=== PATIENT | female | born 1980 | race Hispanic/Latino ===

== ENCOUNTER → 2018-01-27 | Outpatient (CLI) | payer SELFPAY | END | disposition home or self-care (01) | LOC: OIH 13:04 | PROVIDERS: ATTEND Internal Medicine Cardiovascular Disease | DX: Z13.6 Encounter for screening for cardiovascular disorders (principal) | CPT/HCPCS: 75571 ==

== ENCOUNTER → 2018-11-11 | Outpatient (CLI) | payer BC ==
[~2018-11-11] MED LIST: OMEP40CA37 PO
== END | disposition home or self-care (01) ==
LOC: RAH 08:13
PROVIDERS: ATTEND Family Medicine
DX: K76.0 Fatty (change of) liver, not elsewhere classified (principal)
CPT/HCPCS: 76700

== ENCOUNTER 2018-12-21 04:06 | Emergency (ER) | payer BC ==
[2018-12-21 04:43] LABS: BASOPHILS % (AUTO) 0.6 % (0.0-5.0); EOSINOPHILS % (AUTO) 0.6 % (0.0-8.0); HEMATOCRIT 34.9 % (36-48); LYMPHOCYTES % (AUTO) 21.2 % (21.0-51.0); MEAN CORPUSCULAR HEMOGLOBIN 30.1 pg (27.0-33.0); MEAN CORPUSCULAR HGB CONC 34.4 g/dL (32.0-36.0); MEAN CORPUSCULAR VOLUME 87.4 fL (79-99); MONOCYTES % (AUTO) 6.7 % (3.0-13.0); NEUTROPHILS % (AUTO) 70.9 % (40.0-77.0); PLATELET COUNT (AUTO) 246 K/uL (130-400); RED BLOOD CELL COUNT(AUTO) 3.99 MIL/uL (4.00-5.50); RED CELL DISTRIBUTION WIDTH 14.9 % (11.0-15.5); WHITE BLOOD COUNT (AUTO) 10.3 K/uL (4.8-10.8)
[2018-12-21 05:00] LABS: APPEARANCE,URINE Clear (CLEAR); BILIRUBIN,URINE Negative (NEGATIVE); COLOR,URINE Yellow (YELLOW); GLUCOSE, URINE (UA) Negative (NEGATIVE); KETONES,URINE Negative (NEGATIVE); LEUKOCYTE ESTERASE ,URINE Small (NEGATIVE); NITRATE,URINE Negative (NEGATIVE); OCCULT BLOOD,URINE Negative (NEGATIVE); PROTEIN,URINE Negative (NEGATIVE)
[2018-12-21 05:07] LABS: HCG,QUAL RESULT NEGATIVE (NEGATIVE)
[2018-12-21 05:33] LABS: CREATININE 0.8 mg/dL (0.5-1.5); POTASSIUM 4.6 mmol/L (3.5-5.1)
[2018-12-21 05:40] LABS: BACTERIA,URINE Few /HPF (None Seen); MUCUS,URINE Few LPF (None Seen); RBC,URINE 0-1 /HPF (0-1)
[2018-12-21 05:43] LABS: ALBUMIN 3.3 g/dL (3.5-5.0); BILIRUBIN,TOTAL 0.5 mg/dL (0.2-1.0); TOTAL PROTEIN, SERUM 7.7 g/dL (6.0-8.3)
== END 2018-12-21 06:26 | disposition home or self-care (01) ==
LOC: EDH 04:06
DX: K80.50 Calculus of bile duct without cholangitis or cholecystitis without obstruction (principal); Z90.710 Acquired absence of both cervix and uterus; Z98.51 Tubal ligation status; Z88.1 Allergy status to other antibiotic agents; Z88.2 Allergy status to sulfonamides; Z88.6 Allergy status to analgesic agent
CPT/HCPCS: 36415; 80053; 81001; 81025; 83690; 85025

== ENCOUNTER 2019-01-04 10:36 | Observation (INO) | payer BC ==
[~2019-01-04] VITALS: Ht 167.6 cm; Wt 97.5 kg
[2019-01-04 11:23] LABS: BASOPHILS % (AUTO) 0.5 % (0.0-5.0); EOSINOPHILS % (AUTO) 1.1 % (0.0-8.0); HEMATOCRIT 35.1 % (36-48); LYMPHOCYTES % (AUTO) 32.2 % (21.0-51.0); MEAN CORPUSCULAR HEMOGLOBIN 29.4 pg (27.0-33.0); MEAN CORPUSCULAR HGB CONC 33.4 g/dL (32.0-36.0); MEAN CORPUSCULAR VOLUME 87.9 fL (79-99); MONOCYTES % (AUTO) 9.1 % (3.0-13.0); NEUTROPHILS % (AUTO) 57.1 % (40.0-77.0); NUCLEATED RED BLOOD CELLS 0.1 % (0.0-0.19); PLATELET COUNT (AUTO) 237 K/uL (130-400); RED CELL DISTRIBUTION WIDTH 14.7 % (11.0-15.5); WHITE BLOOD COUNT (AUTO) 7.7 K/uL (4.8-10.8)
[2019-01-04 11:35] LABS: CREATININE 0.8 mg/dL (0.5-1.5); POTASSIUM 3.7 mmol/L (3.5-5.1)
[2019-01-04 11:42] LABS: ALBUMIN 3.4 g/dL (3.5-5.0); BILIRUBIN,TOTAL 0.5 mg/dL (0.2-1.0); TOTAL PROTEIN, SERUM 7.7 g/dL (6.0-8.3)
[2019-01-04] MEDS ORDERED: MORPHINE SULFATE 2 MG/ML 1ML SYG IVP PRN (15:30)
[2019-01-04] MEDS ORDERED: LACTATED RINGERS 1000ML 1,000 ML IV SCH (15:30)
[2019-01-04] MEDS ORDERED: KETOROLAC TROMETHAMINE 30MG/ML IV PRN (15:30)
[2019-01-04] MEDS ORDERED: ONDANSETRON HCL 4 MG/2 ML VIAL IVP PRN (15:30)
[2019-01-04] MEDS ORDERED: LACTATED RINGERS 1000ML 1,000 ML IV ONE (18:21)
[2019-01-04 18:31] LABS: APPEARANCE,URINE Clear (CLEAR); BILIRUBIN,URINE Negative (NEGATIVE); COLOR,URINE Yellow (YELLOW); GLUCOSE, URINE (UA) Negative (NEGATIVE); KETONES,URINE Negative (NEGATIVE); LEUKOCYTE ESTERASE ,URINE Trace (NEGATIVE); NITRATE,URINE Negative (NEGATIVE); OCCULT BLOOD,URINE Negative (NEGATIVE); PROTEIN,URINE Trace mg/dL (NEGATIVE)
[2019-01-04 18:37] LABS: PH,URINE 8.5 (5.0-8.0)
[2019-01-04 18:42] LABS: BACTERIA,URINE Few /HPF (None Seen); MUCUS,URINE Moderate LPF (None Seen); RBC,URINE None Seen /HPF (0-1); WBC,URINE 0-1 /HPF (0-1)
[2019-01-04 19:20] VITALS: BP 133/84
--- NOTE | 2019-01-04 19:20 | NUR ---
PT ARRIVED AT THIS TIME. NO DISTRESS NOTED. FAMILY AT BEDSIDE. NO SOB. NO PAIN STATED. AAO3. PERRLA. ABLE TO AMBULATE. WILL BE NPO AT MIDNIGHT. WILL BE HAVING PROCEDURE 01/05. ANTHONY GREEN. CONSENT IN CHART.
--- NOTE | 2019-01-04 20:00 | NUR ---
SPOKE TO PHARMACY REGARDING ASPIRIN ALLERGY DUE TO TORADOL ORDER. REJECTER ORDER SINCE PT STATES GETS SEVERE ANAPHYLACTIC REACTION WITH ASPIRIN.
[2019-01-04 21:00] VITALS: BP 121/73
[2019-01-05] VITALS (19 sets, daily range): BP systolic 93–151; BP diastolic 56–96
[2019-01-05] MEDS ORDERED: HEPARIN SODIUM 1000UNIT/ML 10ML VIAL ONE (08:58)
[2019-01-05] MEDS ORDERED: MIDAZOLAM HCL 1 MG/ML 2ML VIAL ONE (09:46)
[2019-01-05] MEDS ORDERED: LIDOCAINE PF 2% 5ML ABBOJECT ONE (09:46)
[2019-01-05] MEDS ORDERED: ROCURONIUM 10MG/1ML SYR 10 MG/ML ML ONE (09:47)
[2019-01-05] MEDS ORDERED: FENTANYL CITRATE PF 50 MCG/1 ML 2ML VIAL ONE (09:47)
[2019-01-05] MEDS ORDERED: ONDANSETRON HCL 4 MG/2 ML VIAL ONE (09:47)
[2019-01-05] MEDS ORDERED: PROPOFOL 10 MG/ML 20ML VIAL IV ONE (09:47)
[2019-01-05] MEDS ORDERED: GLYCOPYRROLATE 1 MG/5 ML SYRINGE ONE (10:37)
[2019-01-05] MEDS ORDERED: NEOSTIGMINE 5MG/5ML SYR IV ONE (10:38)
[2019-01-05] MEDS ORDERED: ACETAMINOPHEN-CODEINE 300/30MG TAB PO PRN (10:45)
[2019-01-05] MEDS ORDERED: LACTATED RINGERS 1000ML 1,000 ML IV SCH (10:45)
[2019-01-05] MEDS ORDERED: KETOROLAC TROMETHAMINE 30MG/ML ONE (10:52)
--- NOTE | 2019-01-05 16:14 | NUR ---
[facility] NOTE AMBULATORY SURGERY PROCEDURE Mel D/C PLANNED THIS AFT BASED ON MD HISTORY OF PT; Addendum: 01/05/19 at 1617 by DAMIÁN HILLS RN CM Amended: Links added.
== END 2019-01-05 18:00 | disposition home or self-care (01) ==
LOC: EDH 10:36 → INTOOBSV 12:29 → EDHIP 12:29 → 4BH 19:20
PROVIDERS: ADMIT Surgery; ATTEND Surgery
DX: K80.10 Calculus of gallbladder with chronic cholecystitis without obstruction (principal); Z79.899 Other long term (current) drug therapy; Z88.8 Allergy status to other drugs, medicaments and biological substances; Z98.51 Tubal ligation status; Z90.710 Acquired absence of both cervix and uterus
CPT/HCPCS: 36415; 47562; 71045; 76705; 80053; 81001; 82150; 82550; 83690; 84484; 85025; 93005; 96374; 96375; 99283; A4450; C1769 ×4; G0378 ×30; J1644; J1885; J2001; J2250; J2405 ×2; J2704; J2710; J3010; J3490; J7030; J7120 ×3

== ENCOUNTER → 2019-03-03 | Outpatient (CLI) | payer BC | END | disposition home or self-care (01) | LOC: RAH 14:06 | PROVIDERS: ATTEND Physician Assistant Medical | DX: Z12.31 Encounter for screening mammogram for malignant neoplasm of breast (principal) | CPT/HCPCS: 77067 ==

== ENCOUNTER → 2020-05-27 | Outpatient (CLI) | payer BC ==
[~2020-05-27] MED LIST changes: +OMEP40CA13 PO; -OMEP40CA37 PO
== END | disposition home or self-care (01) ==
LOC: RAH 15:19
PROVIDERS: ATTEND Physician Assistant Medical
DX: Z12.31 Encounter for screening mammogram for malignant neoplasm of breast (principal); N64.89 Other specified disorders of breast
CPT/HCPCS: 77067

== ENCOUNTER 2024-09-04 16:38 | Emergency (ER) | payer BC ==
[~2024-09-04] VITALS: Ht 165.1 cm; Wt 80.6 kg
[~2024-09-04 16:38] MED LIST changes: -OMEP40CA13 PO; +OMEP40CA21 PO
--- NOTE | 2024-09-04 16:54 | ERN ---
ED Note History of Present Illness Stated Complaint: DIZZINESS Chief Complaint: Dizzy/Light Headed Time Seen by MD: 16:44 Dictation: PATIENT IS A 44-YEAR-OLD FEMALE COMING IN TODAY WITH HAVING A HISTORY OF SEVERAL SYNCOPAL EPISODES WHERE SHE HAS ACTUALLY FALLEN OFF THE TOILET SEAT AND HIT THE GROUND. SHE HAS BEEN SEEN AT A LOCAL URGENT CARE, THEN SEEN AT [facility] EARLY THIS MONTH. TODAY SHE STATES SHE STARTED HAVING DIZZINESS AND FELT VERY LIGHTHEADED AND CALLED EMS. SHE STATES SHE DOES SEE /[employer] AND SAW HIS PA YESTERDAY. SHE TOLD THE PA THAT IT HAPPENS WHEN SHE IS URINATING AND THE PA CALLED IT MICTURITION SYNCOPE. NIH IS 0 SPEECH IS CLEAR SHE HAS NO CHEST PAIN NO BACK PAIN NO HEADACHE. SHE STATES THE EPISODE TODAY HAPPENED WHILE SHE WAS AT WORK, SHE WAS TALKING TO A CO-WORKER AND IT JUST FINISHED URINATING WHEN SHE GOT BACK TO THE RESTROOM AND FELT DIZZY AND FELT LIKE SHE WAS GOING TO PASS OUT. Allergies: Coded Allergies: aspirin (Unverified Allergy, Unknown, 03/11/17) ciprofloxacin (Unverified Allergy, Unknown, 03/11/17) clindamycin (Unverified Allergy, Unknown, 03/11/17) Uncoded Allergies: MAGNESIUM SULFATE (Allergy, Unknown, 03/11/17) Home Meds Reported Medications Omeprazole (Omeprazole) 40 Mg Capsule., 40 MG PO AD PRN for INDIGESTION, CAP 03/14/18 Past Medical History History: Not Applicable RN Note Reviewed/Agreed w/PFSH: Yes Review of System Dictation CONSTITUTIONAL: NEGATIVE EXCEPT FOR HPI LIGHTHEADED/NEAR-SYNCOPE HEAD/FACE: NEGATIVE EXCEPT FOR HPI EENT: NEGATIVE EXCEPT FOR HPI RESPIRATORY: NEGATIVE EXCEPT FOR HPI GASTROINTESTINAL/ABDOMINAL: NEGATIVE EXCEPT FOR HPI GENITOURINARY: NEGATIVE EXCEPT FOR HPI MUSCULOSKELETAL: NEGATIVE EXCEPT FOR HPI INTEGUMENTARY: NEGATIVE EXCEPT FOR HPI NEUROLOGICAL/PSYCH: NEGATIVE EXCEPT FOR HPI HEMATOLOGIC/LYMPHATIC: NEGATIVE EXCEPT FOR HPI ALL SYSTEMS NEGATIVE, EXCEPT NOTED ABOVE. 13 POINT REVIEW OF SYSTEMS ASSESSED AND ALL NEGATIVE EXCEPT FOR ABOVE. Initial Vital Sign VS Vital Signs Date Time Temp Pulse Resp B/P (MAP) Pulse Ox O2 Delivery O2 Flow Rate FiO2 09/04/24 16:41 98.2 83 17 132/90 98 Room Air 0 Physical Exam Dictation VITAL SIGNS REVIEWED GENERAL APPEARANCE: ALERT, ORIENTED X 3, NO ACUTE DISTRESS, WELL DEVELOPED, NOURISHED. HEAD AND FACE: NON-TRAUMATIC. EYES: PERRL, PINK CONJUNCTIVAS, EYELID NO TRAUMA, ANTERIOR CHAMBER WITH ARCUS SENILIS. EARS: PINNAS INTACT AND NO SIGNS OF TRAUMA OR ERYTHEMA EAR CANALS CLEAR AND NO DISCHARGE TM NO ERYTHEMA NOSE: NO DISCHARGE, NO BLEEDING. OROPHARYNX: MOUTH NORMAL, TONGUE PINK, PHARYNX CLEAR,NO ERYTHEMA, TONSILS NO EXUDATES, NO ABSCESSES NOTED, MUCOUS MEMBRANE MOIST NECK: SUPPLE, NON-TENDER, NO THYROMEGALY, NO MASSES, NO JVD, NO BRUITS BREAST:DEFERRED CHEST:NO TENDERNESS, NO CREPITUS, NO PARADOXICAL MOVEMENT, NO RETRACTIONS LUNGS:CLEAR, WELL-VENTILATED, SYMMETRIC, NO RALES, NO WHEEZING, NO RHONCHI, NO STRIDOR, GOOD BREATH SOUNDS BILATERALLY HEART: REGULAR RATE, REGULAR RHYTHM, NO MURMUR, NO GALLOPS VASCULAR: NO PERIPHERAL EDEMA, ABDOMEN: SOFT, POSITIVE BOWEL SOUNDS, NONDISTENDED, NO GUARDING, NONTENDER, NO REBOUND, NO MASSES NO HEPATOMEGALY, NO SPLENOMEGALY, NO LAFLEUR'S SIGN, NO HERNIAS. RECTAL: DEFERRED GENITAL: DEFERRED IN A NEUROLOGICAL: NORMAL SPEECH, MOTOR FUNCTION INTACT, SENSORY FUNCTION INTACT NIH IS 0 MUSCULOSKELETAL: NECK NONTENDER, FULL RANGE OF MOTION, BACK NONTENDER, FULL RANGE OF MOTION, EXTREMITIES: NONTENDER, FULL RANGE OF MOTION SKIN: COLOR PINK, DRY, NO TURGOR, NO RASH, NO LACERATIONS, NO ABRASIONS, NO CONTUSIONS. LYMPHATIC: DEFERRED Results (Laboratory/Radiology) Laboratory/Radiology Laboratory Tests Test 09/04/24 17:30 09/04/24 17:39 Urine Color COLORLESS (YELLOW) Urine Appearance CLEAR (CLEAR) Urine pH 7.5 (5.0-8.0) Urine Specific [place] 1.004 (1.001-1.031) Urine Protein NEGATIVE mg/dL (NEGATIVE) Urine Glucose (UA) NEGATIVE mg/dL (NEGATIVE) Urine Ketones NEGATIVE mg/dL (NEGATIVE) Urine Occult Blood NEGATIVE (NEGATIVE) Urine Nitrate NEGATIVE (NEGATIVE) Urine Bilirubin NEGATIVE mg/dL (NEGATIVE) Urine Urobilinogen 0.2 mg/dL (0.2-1.0) Urine Leukocyte Esterase NEGATIVE Sujatha/uL White Blood Count 9.5 K/uL (4.8-10.8) Red Blood Count 4.06 MIL/uL (4.00-5.50) Hemoglobin 12.3 g/dL (12.0-16.0) Hematocrit 35.8 % (36-48) L Mean Corpuscular Volume 88.2 fL (79-99) Mean Corpuscular Hemoglobin 30.3 pg (27.0-33.0) Mean Corpuscular Hemoglobin Concent 34.4 g/dL (32.0-36.0) Red Cell Distribution Width 13.2 % (11.0-15.5) Platelet Count 256 K/uL (130-400) Mean Platelet Volume 11.4 fL (7.5-10.5) H Immature Granulocyte % (Auto) 0.1 % (0-1) Neutrophils (%) (Auto) 60.2 % (40.0-77.0) Lymphocytes (%) (Auto) 30.0 % (21.0-51.0) Monocytes (%) (Auto) 9.0 % (3.0-13.0) Eosinophils (%) (Auto) 0.2 % (0.0-8.0) Basophils (%) (Auto) 0.5 % (0.0-5.0) Neutrophils # (Auto) 5.7 K/uL (1.8-7.7) Lymphocytes # (Auto) 2.9 K/uL (1.0-4.8) Monocytes # (Auto) 0.9 K/uL (0.1-1.0) Eosinophils # (Auto) 0.02 K/uL (0.00-0.70) Basophils # (Auto) 0.05 K/uL (0.00-0.20) Absolute Immature Granulocyte (auto 0.01 K/uL (0-1) Nucleated Red Blood Cells 0.0 % (0.0-0.19) Sodium Level 132 mmol/L (136-145) L Potassium Level 3.6 mmol/L (3.5-5.1) Chloride Level 97 mmol/L (101-111) L Carbon Dioxide Level 30 mmol/L (21-32) Blood Urea Nitrogen 11 mg/dL (7-18) Creatinine 0.8 mg/dL (0.5-1.0) Glomerular Filtration Rate Calc 92 mL/min (>90) Random Glucose 98 mg/dL (70-105) Total Calcium 8.2 mg/dL (8.5-10.1) L Magnesium Level 2.00 mg/dL (1.80-2.40) Troponin I High Sensitivity < 4 ng/L (4-50) L Labs Reviewed?: Yes EKG Comment: EKG NORMAL SINUS RHYTHM/HEART RATE 70/AXIS NORMAL/NO ED Course ED Course Orders Procedure Category Date Status Time Cbc With Differential LAB 09/04/24 Complete 16:50 12 Lead Ekg Tracing- EKG 09/04/24 Logged Technical 16:50 Magnesium LAB 09/04/24 Complete 16:50 Troponin I High LAB 09/04/24 Complete Sensitivity 16:50 Basic Metabolic Panel LAB 09/04/24 Complete 16:50 Urinalysis Profile LAB 09/04/24 Complete 17:55 Bladder Scan CPOE 09/04/24 Transmitted 19:36 Vital Signs Date Time Temp Pulse Resp B/P (MAP) Pulse Ox O2 Delivery O2 Flow Rate FiO2 09/04/24 16:41 98.2 83 17 132/90 98 Room Air 0 1930/SPOKE WITH /NEUROLOGIST REGARDING PATIENT AND QUESTIONED OF MICTURITION SYNCOPE. I EXPLAINED TO HIM THAT SHE HAS HAD THREE OF THESE EPISODES OF SYNCOPE TO OVUM WHILE SHE WAS IN THE RESTROOM. SHE STATES SHE WAS URINATING BOTH TIMES. HE DID NOT FEEL LIKE THIS WAS A SEIZURE NO IMAGING INDICATED. HE SUGGESTED THAT IT COULD BE MOST LIKELY VASOVAGAL SECONDARY TO BLADDER DISTENTION CAUSING A SYMPATHETIC LOAD VERSUS HAVING TO FORCE URINATION. WHEN I SPOKE TO THE PATIENT REGARDING THIS SHE SAID THAT SHE URINATES FREQUENTLY AND FEELS LIKE SHE IS EMPTYING YOUR BLADDER HOWEVER SHE STATES SHE HAD A BLADDER SUSPENSION DONE WHEN SHE HAD HER HYSTERECTOMY SEVERAL YEARS AGO. POSTVOID RESIDUAL LESS THAN 10 CC. PATIENT WILL BE DISCHARGED HOME WITH MICTURITION SYNCOPE HEART Score Response (Comments) Value History: Low suspicion (0) 0 Age: 45-65yrs (+1) 1 Risk Factors: 1-2 risk factors (+1) 1 Initial Troponin: Normal limit (0) 0 Total 2 Medical Decision Making MDM MDM: DIFFERENTIAL DIAGNOSIS: ACS/AMI/ARRHYTHMIA/ELECTROLYTE IMBALANCE/DEHYDRATI ON/VASOVAGAL RATIONALE: TESTS CONSIDERED AND ORDERED SECONDARY TO SHARED DECISION MAKING INCLUDE: LABS/EKG PREVIOUS OUTSIDE RECORDS REVIEWED: OLD ER VISITS. RISK OF COMPLICATION AND/OR MORBIDITY OR MORTALITY OF PATIENT MANAGEMENT: NONE MEDICATIONS-PER MEDICATION RECONCILIATION NEED FOR HOSPITALIZATION: PATIENT DOES NOT MEET CRITERIA FOR HOSPITALIZATION. NO NEED FOR EMERGENCY MAJOR/MINOR SURGERY: NO THERE ARE NO SOCIAL CONCERNS WITH THIS PATIENT. PRESCRIPTION DRUG MANAGEMENT DISCUSSED CASE WITH PATIENT AND SHE IS AWARE I HAVE SPOKEN TO A NEUROLOGIST. PRESCRIPTIONS WILL INCLUDE SYMPTOMATIC CARE PATIENT'S PRIOR EXTERNAL MEDICAL RECORDS FROM OTHER ER VISITS WERE REVIEWED BY ME INDICATED. PRIOR TESTING AND RESULTS FROM PREVIOUS VISITS WERE REVIEWED. PRIOR TESTS WERE TAKEN INTO ACCOUNT WITH MEDICAL DECISION MAKING AND RESOURCE UTILIZATION, INDEPENDENT HISTORIAN/HISTORIANS WERE USED TO OBTAIN COMPLETE MEDICAL HISTORY. I INDEPENDENTLY INTERPRETED THE TEST THAT WERE PERFORMED, RESULTS WERE REVIEWED BY ME AND CONSIDERED FINDINGS ON RADIOLOGY IF ORDERED. MEDICAL MANAGEMENT AND EXAMINATION INTERPRETATION DISCUSSIONS WERE HAD BY ME WIT H OTHER QUALIFIED HEALTHCARE PROFESSIONALS INDICATED FOR THE PATIENT'S CARE. Procedure Procedure Dictation: Kasi/JULIANA CUNNINGHAM PERFORM POSTVOID BLADDER SCAN SCAN SHOWED LESS THAN 10 CC URINE IN THE BLADDER. DX & DISP Disposition: Discharge Departure Impression: Primary Impression: Micturition syncope Additional Impression: History of bladder suspension procedure Condition: Stable Additional Instructions: FOLLOW-UP WITH PRIMARY CARE PROVIDER IN 1 TO 2 DAYS. TAKE MEDICATIONS DIRECTED HERE IN THE EMERGENCY ROOM. OKAY TO CONTINUE HOME MEDICATIONS UNLESS OTHERWISE DISCUSSED DURING YOUR VISIT IN THE EMERGENCY ROOM TODAY. RETURN TO YOUR NEAREST EMERGENCY ROOM IF SYMPTOMS WORSEN OR IF THERE IS NO IMPROVEMENT. CALL 911 IF YOU NEED IMMEDIATE ASSISTANCE. TAKE TYLENOL OR MOTRIN [id number] NEEDED AND IF NO CONTRAINDICATIONS ARE PRESENT. INCREASE ORAL HYDRATION. A WOUND CULTURE OR URINE CULTURE WAS ORDERED HERE IN THE EMERGENCY ROOM DEPARTMENT PLEASE FOLLOW-UP WITH PRIMARY CARE PROVIDER AND ADVISE THEM TO GET REPEAT PORTS FROM OUR FACILITY. IF YOU HAD ANY GRACY WRAP/SPLINTS THAT WERE APPLIED HERE, PLEASE DO NOT REMOVE THEM UNTIL YOU SEE YOUR PRIMARY CARE OR SPECIALTY. RISE SLOWLY AND CHANGE POSITION SLOWLY AFTER URINATING. STAY WELL HYDRATED. SUGGEST AVOIDING ALCOHOL AND COFFEE. URINATE WELL BEFORE BEDTIME USING THE SAME PRINCIPLES DISCUSSED FOLLOW UP WITH THE UROLOGIST, CALL FOR AN APPOINTMENT IN THE NEXT SEVERAL DAYS. OR SEE YOUR PRIMARY CARE DOCTOR. Referrals: QUIQUE CRUZ MD (PCP) ЕЛЕНА COHN MD Time of Disposition: 20:09 I have reviewed the case, and I agree with, Diagnosis and Plan BENTLEY STONE NP Sep 04, 2024 16:54
[2024-09-04 17:55] LABS: BASOPHILS # (AUTO) 0.05 K/uL (0.00-0.20); BASOPHILS % (AUTO) 0.5 % (0.0-5.0); EOSINOPHILS # (AUTO) 0.02 K/uL (0.00-0.70); EOSINOPHILS % (AUTO) 0.2 % (0.0-8.0); HEMATOCRIT 35.8 % (36-48); IMMATURE GRANULOCYTE ABSOLUTE 0.01 K/uL (0-1); LYMPHOCYTES # (AUTO) 2.9 K/uL (1.0-4.8); MEAN CORPUSCULAR HEMOGLOBIN 30.3 pg (27.0-33.0); MEAN CORPUSCULAR HGB CONC 34.4 g/dL (32.0-36.0); MEAN CORPUSCULAR VOLUME 88.2 fL (79-99); MONOCYTES # (AUTO) 0.9 K/uL (0.1-1.0); NEUTROPHILS # (AUTO) 5.7 K/uL (1.8-7.7); NEUTROPHILS % (AUTO) 60.2 % (40.0-77.0); PLATELET COUNT (AUTO) 256 K/uL (130-400); RED BLOOD CELL COUNT(AUTO) 4.06 MIL/uL (4.00-5.50); RED CELL DISTRIBUTION WIDTH 13.2 % (11.0-15.5); WHITE BLOOD COUNT (AUTO) 9.5 K/uL (4.8-10.8)
[2024-09-04 18:01] LABS: CREATININE 0.8 mg/dL (0.5-1.0); POTASSIUM 3.6 mmol/L (3.5-5.1)
[2024-09-04 18:47] LABS: APPEARANCE,URINE CLEAR (CLEAR); BILIRUBIN,URINE NEGATIVE (NEGATIVE); COLOR,URINE COLORLESS (YELLOW); GLUCOSE, URINE (UA) NEGATIVE (NEGATIVE); KETONES,URINE NEGATIVE (NEGATIVE); LEUKOCYTE ESTERASE ,URINE NEGATIVE Leu/uL (NEGATIVE); NITRATE,URINE NEGATIVE (NEGATIVE); OCCULT BLOOD,URINE NEGATIVE (NEGATIVE); PH,URINE 7.5 (5.0-8.0); PROTEIN,URINE NEGATIVE (NEGATIVE); UROBILINOGEN,URINE 0.2 mg/dL (0.2-1.0)
[2024-09-04 19:03] LABS: ADD UA MICROSCOPIC NO
[2024-09-04 20:20] VITALS: BP 134/75; PULSE 87; RESP 18; TEMP 98.4; O2SAT 98
--- NOTE | 2024-09-05 06:45 | EKG ---
[facility] Test Date: 2024-09-04 Test Time: 18:02:18 Pat Name: JOSE SHOOK Department: ED Room: Gender: F Tutoring Manager: [id number] : 1980 Requested By: BENTLEY STONE Order Number: [id number] Reading MD: Robel Munoz Measurements Intervals [place] Rate: 70 P: 56 DE: 153 QRS: 75 QRSD: 88 T: 54 QT: 395 QTc: 425 Interpretive Statements Sinus rhythm Compared to ECG 01/04/2019 10:47:56 No significant changes Electronically Signed On 09-06-2024 19:58:48 GARMENT TAG STRINGER by Robel Munoz Please click the below link to view image of tracing.
== END 2024-09-04 20:31 | disposition home or self-care (01) ==
LOC: EDH 16:38
DX: R55 Syncope and collapse (principal); R39.198 Other difficulties with micturition; Z88.1 Allergy status to other antibiotic agents; Z88.6 Allergy status to analgesic agent
CPT/HCPCS: 36415; 51798; 80048; 81003; 83735; 84484; 85025; 93005; 99284

== ENCOUNTER 2025-08-07 08:36 | Day surgery (SDC) | payer BC ==
[2025-08-06 09:43] LABS: CREATININE 0.7 mg/dL (0.5-1.0); GLOMERULAR FILTR. RATE CALC 107.0 mL/min (>90); GLUCOSE,RANDOM 85.0 mg/dL (70-105); IMMATURE GRANULOCYTE ABSOLUTE 0.02 K/uL (0-1); NUCLEATED RED BLOOD CELLS 0.0 % (0.0-0.19); PLATELET COUNT (AUTO) 225 K/uL (130-400); RED BLOOD CELL COUNT(AUTO) 4.11 MIL/uL (4.00-5.50); RED CELL DISTRIBUTION WIDTH 13.0 % (11.0-15.5); SODIUM SERUM 138.0 mmol/L (136-145); UREA NITROGEN, BLOOD 11.0 mg/dL (7-18); WHITE BLOOD COUNT (AUTO) 7.8 K/uL (4.8-10.8)
[2025-08-06 09:45] LABS: INR 1.01 (0.85-1.15)
[2025-08-06 09:52] VITALS: BP 131/75; PULSE 68; RESP 17; TEMP 98.1
--- NOTE | 2025-08-06 10:35 | EKG ---
[facility] Test Date: 2025-08-06 Test Time: 09:26:47 Pat Name: JOSE VALDES Department: [facility] Room: Gender: F Delivery Of Shopping News: [id number] : 1980 Requested By: GENO ALCANTAR Order Number: [id number] Reading MD: Eloina Rosas Measurements Intervals [place] Rate: 64 P: 30 ID: [id number] QRS: 56 QRSD: 95 T: 45 QT: 400 QTc: 413 Interpretive Statements Sinus rhythm Ventricular premature complex Compared to ECG 09/04/2024 18:02:18 Ventricular premature complex(es) now present Electronically Signed On 08-06-2025 16:47:13 PROJECT CONSTRUCTION ASSISTANT MANAGER by Eloina Rosas Please click the below link to view image of tracing.
[2025-08-07] VITALS (12 sets, daily range): BP systolic 118–134; BP diastolic 73–96; PULSE 74–83; RESP 13–19; TEMP 97.2–98.2
[~2025-08-07] VITALS: Ht 165.1 cm; Wt 84.9 kg
[~2025-08-07 08:36] MED LIST changes: +HYDR-3421 PO; -OMEP40CA21 PO; +SEMA2PEN SQ
[2025-08-07] MEDS: 0.9%NACL 1000ML 1,000 ML IV SCH (09:33)
[2025-08-07] MEDS ORDERED: SODIUM BICARB 50MEQ 50ML VIAL 50 ML ONE (11:59)
[2025-08-07] MEDS ORDERED: MIDAZOLAM HCL 1 MG/ML 2ML VIAL ONE ×5 (11:59→14:57)
[2025-08-07] MEDS ORDERED: HEParin-NS 1,000 UNIT/500 ML 500 ML IV ONE ×2 (11:59→13:06)
[2025-08-07] MEDS ORDERED: ISOPROTERENOL HCL 0.2 MG/ML AMP/VIAL/BAG ONE ×2 (13:06→13:56)
[2025-08-07] MEDS ORDERED: AMIOdarone 150MG/100ML BAG 100 ML ONE (14:26)
[2025-08-07] MEDS ORDERED: BACITRACIN 1 EACH PACKET TP ONE (15:27)
[2025-08-07] MEDS ORDERED: LIDOCAINE HCL-MPF 1% 2ML VIAL ONE (16:13)
--- NOTE | 2025-08-07 18:17 | NUR ---
Right Femoral site clean, dry and intact. Loop recorder site clean and dry No sign of bleeding, bruising or hematoma. Instructed Patient and Family of precautions and expectations until discharge. All voiced understanding. Full and complete discharge instructions given to Patient and Family both verbally and in writing. Tolerated fluids and voided in bathroom. PIV removed with catheter tip intact. Patient had a short 8-10 second of nausea and light headedness post nausea episode. Taina from [employer] at bedside along with RN and . Patient now calm and stated feeling good. PERRLA with sr remaining.
--- NOTE | 2025-08-07 18:29 | NUR ---
[employer] [place] updating Dr Cabrera at this time. Dr Cabrera stated to go ahead and send her home and he will call her tomorrow morning himself. Discharged her W/C to POV with .
== END 2025-08-07 18:58 | disposition home or self-care (01) ==
LOC: DAH 08:36
PROVIDERS: ATTEND Internal Medicine Cardiovascular Disease
DX: I47.19 Other supraventricular tachycardia (principal); R55 Syncope and collapse; G43.909 Migraine, unspecified, not intractable, without status migrainosus; Z98.51 Tubal ligation status; Z90.710 Acquired absence of both cervix and uterus; Z83.3 Family history of diabetes mellitus; Z88.6 Allergy status to analgesic agent; Z88.1 Allergy status to other antibiotic agents; Z79.899 Other long term (current) drug therapy; Z98.890 Other specified postprocedural states
CPT/HCPCS: 33285; 36415; 80048; 85025; 85347; 85610; 85730; 93005; 93602; 93613; 93620; 93621; 93623; 99156; 99157; A4344; A4606; C1730; C1732; C1894; J1644; J2250; J2704; J3010; J3490; J7030; A4215; A4216; A4221; A4223; A4649; A4663; A6251; A6258; C1760; C1764; J0283